=== PATIENT | female | born 1955 | race Caucasian/White ===

== ENCOUNTER 2023-05-22 07:05 | Day surgery (SDC) | payer MEDICARE ==
[~2023-05-22] VITALS: Ht 165.1 cm; Wt 95.3 kg
[~2023-05-22 07:05] MED LIST: ALBUTEROL SUL0.083 % IN; ATORVASTATIN CA10 MG PO; AUGMENTIN875TAB OR; BREO ELLIPTA 101 INH; CLARITIN10 M1 PO; COZAAR25 MG PO; HYDROCHLOROTH12.5 M1 PO; KETOROLAC60 MG/2 ML IJ; LEVAQUIN500 MG PO; LORTAB 5 OR; LORTAB 5/3255 MG PO; LOVASTATIN10 M1 PO; MEDDOSEPAK PO; METFORMIN500 MG PO; OZEMPIC 8 MG/3M1 INJ; PREDNISONE10 MG PO; PRILOSEC OTC20 MG PO; PROAIR HFA IN; SYMBICORT1 AE1 IN; ZPAK PO; ZYBAN150 MG PO; [UNRECOGNIZED DRUG - OTHER] VA
[2023-05-22] MEDS ORDERED: PERCOCET 5/325M1 TAB PO (08:43)
[2023-05-22 10:46] VITALS: BP 130/68
== END 2023-05-22 10:55 | disposition home or self-care (01) ==
LOC: ORM 07:05
PROVIDERS: ATTEND Surgery
PROC: 0FT44ZZ Resection of Gallbladder, Percutaneous Endoscopic Approach (ICD-10-PCS; principal; 2023-05-22)
DX: K80.12 Calculus of gallbladder with acute and chronic cholecystitis without obstruction (principal); E11.9 Type 2 diabetes mellitus without complications; J44.9 Chronic obstructive pulmonary disease, unspecified; Z79.85 Long-term (current) use of injectable non-insulin antidiabetic drugs
CPT/HCPCS: J0131; J0690